=== PATIENT | male | born 1950 | race Two or more races ===

== ENCOUNTER 2020-12-21 19:30 | Emergency (ER) | payer OTHER ==
[~2020-12-21] VITALS: Ht 165.1 cm; Wt 77.1 kg
[2020-12-21 19:32] VITALS: BP 133/79
== END 2020-12-21 22:41 | disposition left against medical advice (07) ==
LOC: ER 19:33
DX: M25.552 Pain in left hip (principal); M54.5 Low back pain; R07.89 Other chest pain; V89.2XXA Person injured in unspecified motor-vehicle accident, traffic, initial encounter; Y93.89 Activity, other specified; Y92.410 Unspecified street and highway as the place of occurrence of the external cause; Y99.8 Other external cause status
CPT/HCPCS: 71045; 72040; 72100; 72170

== ENCOUNTER 2021-03-22 11:12 | Emergency (ER) | payer SELFPAY ==
[~2021-03-22] VITALS: Ht 165.1 cm; Wt 53.1 kg
[2021-03-22 12:31] VITALS: BP 132/79
[2021-03-22] MEDS ORDERED: ACETAMINOPHEN 325 MG TAB PO ONE (13:45)
== END 2021-03-22 14:04 | disposition home or self-care (01) ==
LOC: ER 11:12
DX: S16.1XXA Strain of muscle, fascia and tendon at neck level, initial encounter (principal); S46.912A Strain of unspecified muscle, fascia and tendon at shoulder and upper arm level, left arm, initial encounter; M48.02 Spinal stenosis, cervical region; V43.53XA Car driver injured in collision with pick-up truck in traffic accident, initial encounter; Y93.I9 Activity, other involving external motion; Y92.89 Other specified places as the place of occurrence of the external cause; Y99.8 Other external cause status
CPT/HCPCS: 72125; 73030